=== PATIENT | male | born 1990 | race Caucasian/White ===

== ENCOUNTER 2018-07-26 15:03 | Inpatient (IN) | payer SELFPAY ==
[2018-07-26] MEDS ORDERED: KETOROLAC TROMETHAMINE INJ/PF 30 MG/1 ML SDV IV ONE (16:02)
[2018-07-26] MEDS ORDERED: VANCOMYCIN HCL INJ 1000 MG VIAL IV ONE (16:02)
--- NOTE | 2018-07-26 16:07 | ER Document Report ---
ED General - General Chief Complaint: Leg Swelling Stated Complaint: ANKLE INJURY Time Seen by Provider: 07/26/18 15:42 TRAVEL OUTSIDE OF THE [place] IN LAST 30 DAYS: No - HPI Onset: Other - 1 week Onset/Duration: Gradual, Worse Quality of pain: Burning, Sharp Severity: Severe Associated symptoms: None Exacerbated by: Standing, Movement Relieved by: Denies Similar symptoms previously: No Notes: Patient presents to the emergency room for pain and redness in his right ankle. He noticed the swelling starting about 1 week ago but it became more severe over the past 2-3 days. He reports that the ankle feels warm and achy. Pain is worse with movement and standing. He has tried [id number] pain medications with no relief. He denies fevers, chills, nausea, vomiting, abdominal pain, shortness of breath, chest pain, numbness and weakness. He does have a history of IV drug use but denies injection into his right lower extremity. His last injection was 2 months ago and was methamphetamine. Patient also complaining of right medial clavicular pain which has been constant since a trauma he experienced 3 weeks ago. Patient states a piece of sheet rock fell on his right clavicle. He has had multiple ER visits and x- rays and has been told that it might be broken. He states he was referred to orthopedics but cannot afford to follow-up. He denies change in his clavicle pain over the last few weeks - Related Data Allergies/Adverse Reactions: No Known Allergies Allergy (Unverified 07/26/18 16:02) Past Medical History - Social History Smoking Status: Current Every Day Smoker Chew tobacco use (# tins/day): No Frequency of alcohol use: None Drug Abuse: Methamphetamine Family History: Reviewed & Not Pertinent Patient has suicidal ideation: No Patient has homicidal ideation: No - Medical History Medical History: Negative Renal/ Medical History: Denies: Hx Peritoneal Dialysis Surgical Hx: Other - Left tibial orthopedics surgery Review of Systems - Review of Systems Notes: REVIEW OF SYSTEMS: CONSTITUTIONAL : Denies fever, chills, or sweats. Denies recent illness. EENT: Denies eye, ear, throat, or mouth pain or symptoms. Denies nasal or sinus congestion. CARDIOVASCULAR: Denies chest pain. RESPIRATORY: Denies cough, cold, or chest congestion. Denies shortness of breath, difficulty breathing, or wheezing. GASTROINTESTINAL: Denies abdominal pain. Denies nausea, vomiting, or diarrhea. Denies constipation. GENITOURINARY: Denies difficulty urinating, painful urination and urinary frequency. MUSCULOSKELETAL: Denies neck or back pain . Right ankle pain, right medial clavicle pain SKIN: Redness to right ankle. HEMATOLOGIC : Denies easy bruising or bleeding. LYMPHATIC: Denies swollen, enlarged glands. NEUROLOGICAL: Denies altered mental status. Denies headache. Denies weakness or paralysis. Denies problems with gait or speech. Denies sensory or motor loss. PSYCHIATRIC: Denies anxiety or depression. ALL OTHER SYSTEMS REVIEWED AND NEGATIVE. Physical Exam - Vital signs Vitals: Temp Pulse Resp BP Pulse Ox 98.1 F 117 H 24 H 134/75 H 100 07/26/18 15:14 07/26/18 15:14 07/26/18 15:14 07/26/18 15:14 07/26/18 15:14 - Notes Notes: PHYSICAL EXAMINATION: GENERAL: Well-appearing, well-nourished and in no acute distress. HEAD: Atraumatic, normocephalic. EYES: Pupils equal round and reactive to light, extraocular movements intact, conjunctiva are normal. ENT: nares patent, oropharynx clear without exudates. Moist mucous membranes. NECK: Normal range of motion, supple without lymphadenopathy LUNGS: Breath sounds clear to auscultation bilaterally and equal. No wheezes rales or rhonchi. HEART: Regular rate and rhythm without murmurs ABDOMEN: Soft, nontender, normoactive bowel sounds. No guarding, no rebound. No masses appreciated. EXTREMITIES: Right ankle: Significant edema, erythema, calor and decreased range of motion with diffuse tenderness to palpation. Edema of right foot with erythema. Petechial rash to bilateral lower extremities worse on the right. Right medial clavicle tenderness and mild swelling at the sternoclavicular joint. Normal range of motion of right upper extremity. No chest wall crepitus. NEUROLOGICAL: No focal neurological deficits. Moves all extremities spontaneously and on command. PSYCH: Normal mood, normal affect. SKIN: Warm, Dry, normal turgor, no rashes or lesions noted. Course - Re-evaluation Re-evalutation: 07/26/18 17:18 Vitals reviewed. Patient has tachycardia and tachypnea combined with right ankle cellulitis he is meeting sepsis criteria. Blood cultures were obtained. Patient was ordered vancomycin for his right lower extremity cellulitis and possible septic arthritis. Lab work shows no leukocytosis. He does have elevated ESR and CRP. X-ray of the ankle shows significant soft tissue swelling and effusion. I discussed patient's care with Dr. Monsivais. Because I am concerned for septic arthritis I requested that he aspirated patient's ankle and evaluate him in the emergency room. He did request that the vancomycin be held until after aspiration is completed. Patient received 500 mg vancomycin but I did stop the infusion, it will be restarted after aspiration is obtained. Patient has a normal lactate and is not in severe sepsis or septic shock. His pain was treated with IV medication. 07/26/18 18:31 Patient evaluated by orthopedic surgery Dr. dan in the emergency room. No joint aspirate was able to be obtained. He recommends empiric IV antibiotic treatment and close clinical monitoring. Patient will be admitted to the hospital for further antibiotics and management. Case discussed with admitting physician. Patient in agreement with the plan. 07/26/18 18:32 Laboratory 07/26/18 07/26/18 07/26/18 15:03 15:03 16:30 WBC 7.0 RBC 4.15 L Hgb 12.3 L Hct 36.8 L MCV 89 MCH 29.8 MCHC 33.5 RDW 14.2 H Plt Count 274 Seg Neutrophils % 66.0 Lymphocytes % 19.4 Monocytes % 11.7 Eosinophils % 1.6 Basophils % 1.3 Absolute Neutrophils 4.6 Absolute Lymphocytes 1.4 Absolute Monocytes 0.8 Absolute Eosinophils 0.1 Absolute Basophils 0.1 ESR 38 H Sodium 142.0 Potassium 3.9 Chloride 104 Carbon Dioxide 28 Anion Gap 10 BUN 11 Creatinine 0.70 Est GFR ( Amer) > 60 Est GFR (Non-Af Amer) > 60 Glucose 82 Lactic Acid 1.7 Calcium 9.0 C-Reactive Protein 45.0 H Ankle X-Ray 07/26/18 15:59 IMPRESSION: Ankle joint effusion with diffuse soft tissue swelling. No fracture. - Vital Signs Vital signs: Temp Pulse Resp BP Pulse Ox 98.1 F 117 H 24 H 134/75 H 100 07/26/18 15:14 07/26/18 15:14 07/26/18 15:14 07/26/18 15:14 07/26/18 15:14 - Laboratory Result Diagrams: 07/26/18 15:03 07/26/18 15:03 Laboratory results interpreted by me: 07/26/18 07/26/18 15:03 15:03 RBC 4.15 L Hgb 12.3 L Hct 36.8 L RDW 14.2 H ESR 38 H C-Reactive Protein 45.0 H Discharge - Discharge Clinical Impression: Cellulitis of right leg Condition: Stable Admitting Provider: Hospitalist Unit Admitted: Telemetry
[2018-07-26 16:13] LABS: ABSOLUTE BASOPHILS # (AUTO) 0.1 10^3/uL (0.0-0.2); ABSOLUTE EOSINOPHILS # (AUTO) 0.1 10^3/uL (0.0-0.6); ABSOLUTE LYMPHOCYTES (AUTO) 1.4 10^3/uL (0.5-4.7); ABSOLUTE MONOCYTES (AUTO) 0.8 10^3/uL (0.1-1.4); ABSOLUTE NEUT (AUTO) 4.6 10^3/uL (1.7-8.2); BASOPHILS % (AUTO) 1.3 % (0-2); EOSINOPHILS % (AUTO) 1.6 % (0-6); HEMATOCRIT 36.8 % (37.9-51.0); HEMOGLOBIN 12.3 g/dL (13.5-17.0); LYMPHOCYTES % (AUTO) 19.4 % (13-45); MEAN CORPUSCULAR HEMOGLOBIN 29.8 pg (27.0-33.4); MEAN CORPUSCULAR HGB CONC 33.5 g/dL (32.0-36.0); MEAN CORPUSCULAR VOLUME 89 fl (80-97); MONOCYTES % (AUTO) 11.7 % (3-13); PLATELET COUNT 274 10^3/uL (150-450); RED BLOOD COUNT 4.15 10^6/uL (4.35-5.55); RED CELL DISTRIBUTION WIDTH 14.2 % (11.5-14.0); TOTAL CELLS COUNTED % (AUTO) 100 %
[2018-07-26 16:21] LABS: ANION GAP 10 (5-19); BLOOD UREA NITROGEN 11 mg/dL (7-20); CARBON DIOXIDE 28 mmol/L (22-30); CHLORIDE 104 mmol/L (98-107); GLUCOSE 82 mg/dL (75-110); POTASSIUM 3.9 mmol/L (3.6-5.0)
[2018-07-26] MEDS: NORMAL SALINE 1000 ML 1,000 ML IV PRN ×2 (16:27→17:31)
[2018-07-26 16:53] LABS: ERYTHROCYTE SEDIMENTATION RATE 38 mm/hr (0-15)
--- NOTE | 2018-07-26 16:57 | RADIOLOGY REPORT (SQ) ---
EXAM DESCRIPTION: ANKLE RIGHT COMPLETE COMPLETED DATE/TIME: 07/26/2018 4:30 pm REASON FOR STUDY: edema swelling for 3 weeks, no known injury COMPARISON: None. NUMBER OF VIEWS: Three views. TECHNIQUE: AP, lateral, and oblique radiographic images acquired of the right ankle. LIMITATIONS: None. FINDINGS: MINERALIZATION: Normal. BONES: No acute fracture or dislocation. No worrisome bone lesions. JOINTS: No disruption of the ankle mortise. Tibiotalar joint effusion present. SOFT TISSUES: Diffuse soft tissue swelling. No soft tissue gas. No radiopaque foreign body. OTHER: No other significant finding. IMPRESSION: Ankle joint effusion with diffuse soft tissue swelling. No fracture. TECHNICAL DOCUMENTATION: JOB ID: [id number] [employer]- All Rights Reserved Reading location - IP/workstation name: [email or web address]
--- NOTE | 2018-07-26 18:42 | PDOC CONSULTATION ---
History of Present Illness Patient complains of: Right ankle pain History of Present Illness: DARYL ESTEVEZ is a 27 year old male presents emergency room with complaints of right ankle discomfort. He states it has been ongoing for a few weeks but has worsened over the past 24-48 hours with difficulty upon ambulation and notable increased swelling. Patient denies fever chills or sweats. Pain 5/5. Patient does have history of IV drug abuse but states his last IV drugs were 2 months ago and that was in the upper extremity not in the right lower extremity where his complaint is today. Social History Smoking Status: Current Every Day Smoker Hx Recreational Drug Use: Yes Family History Parental Family History Reviewed: No Children Family History Reviewed: No Sibling(s) Family History Reviewed.: No Medication/Allergy Allergies/Adverse Reactions: No Known Allergies Allergy (Unverified 07/26/18 16:02) Review of Systems All systems: as per PMH Constitutional: ABSENT: chills, fever(s), headache(s), weight gain, weight loss Eyes: ABSENT: visual disturbances Ears: ABSENT: hearing changes Cardiovascular: ABSENT: chest pain, dyspnea on exertion, edema, orthropnea, palpitations Respiratory: ABSENT: cough, hemoptysis Gastrointestinal: ABSENT: abdominal pain, constipation, diarrhea, hematemesis, hematochezia, nausea, vomiting Genitourinary: ABSENT: dysuria, hematuria Integumentary: ABSENT: rash, wounds Neurological: ABSENT: abnormal gait, abnormal speech, confusion, dizziness, focal weakness, syncope Psychiatric: ABSENT: anxiety, depression, homidical ideation, suicidal ideation Endocrine: ABSENT: cold intolerance, heat intolerance, menstrual abnormalities, polydipsia, polyuria Hematologic/Lymphatic: ABSENT: easy bleeding, easy bruising, lymphadenopathy Physical Exam Vital Signs: Temp Pulse Resp BP Pulse Ox 98.1 F 117 H 24 H 134/75 H 100 07/26/18 15:14 07/26/18 15:14 07/26/18 15:14 07/26/18 15:14 07/26/18 15:14 Intake & Output 07/25/18 07/26/18 07/27/18 06:59 06:59 06:59 Intake Total 1999 Balance 1999 Weight 72.575 kg General appearance: PRESENT: no acute distress, cooperative, well-developed, well-nourished Head exam: PRESENT: atraumatic, normocephalic Eye exam: PRESENT: conjunctival injection, EOMI, PERRLA. ABSENT: scleral icterus Ear exam: PRESENT: normal external ear exam Mouth exam: PRESENT: moist, tongue midline Teeth exam: PRESENT: poor dentation Neck exam: PRESENT: full ROM. ABSENT: carotid bruit, JVD, lymphadenopathy, thyromegaly Respiratory exam: PRESENT: unlabored Cardiovascular exam: PRESENT: RRR. ABSENT: diastolic murmur, rubs, systolic murmur Pulses: PRESENT: normal dorsalis pedis pul, +2 pedal pulses bilateral Vascular exam: PRESENT: normal capillary refill GI/Abdominal exam: PRESENT: soft. ABSENT: distended, guarding, mass, organolmegaly, rebound, tenderness Rectal exam: PRESENT: deferred Musculoskeletal exam: PRESENT: other - Right lower extremity: Erythema/macular rash around the right lower extremity. Notable swelling throughout the right ankle. Exquisite tenderness with palpation. Patient has pain with attempted terminal dorsiflexion and plantar flexion. No sensory deficits. Cap refill less than 2 seconds. No calf tenderness. Neurological exam: PRESENT: alert, awake, oriented to person, oriented to place , oriented to time, oriented to situation, CN II-XII grossly intact. ABSENT: motor sensory deficit Psychiatric exam: PRESENT: appropriate affect, normal mood. ABSENT: homicidal ideation, suicidal ideation Skin exam: PRESENT: dry, intact, warm. ABSENT: cyanosis, rash Results Laboratory Results: 07/26/18 15:03 07/26/18 15:03 07/26/18 07/26/18 07/26/18 15:03 15:03 16:30 WBC 7.0 RBC 4.15 L Hgb 12.3 L Hct 36.8 L MCV 89 MCH 29.8 MCHC 33.5 RDW 14.2 H Plt Count 274 Seg Neutrophils % 66.0 Lymphocytes % 19.4 Monocytes % 11.7 Eosinophils % 1.6 Basophils % 1.3 Absolute Neutrophils 4.6 Absolute Lymphocytes 1.4 Absolute Monocytes 0.8 Absolute Eosinophils 0.1 Absolute Basophils 0.1 Sodium 142.0 Potassium 3.9 Chloride 104 Carbon Dioxide 28 Anion Gap 10 BUN 11 Creatinine 0.70 Est GFR ( Amer) > 60 Est GFR (Non-Af Amer) > 60 Glucose 82 Lactic Acid 1.7 Calcium 9.0 C-Reactive Protein 45.0 H Impressions: Ankle X-Ray 07/26/18 15:59 IMPRESSION: Ankle joint effusion with diffuse soft tissue swelling. No fracture. Status: Image reviewed by me - I have reviewed patient's radiographs demonstrate soft tissue swelling with mild effusion. No evidence of acute trauma or osseous lesion. Assessment & Plan - Diagnosis (1) Cellulitis of right lower extremity Is this a current diagnosis for this admission?: Yes Plan: Patient has findings of swelling and erythema the right lower extremity within the differential diagnosis includes possible gout versus septic arthritis. Given patient's history of IV drug abuse septic arthritis and cellulitis certainly are somewhat higher on the list of the differential. However patient has no evidence of increased white blood cell count or left shift at this point we discussed treatment options and I recommended attempted aspiration. Patient gave verbal consent for right ankle aspiration, see procedure note below. Unfortunately I obtained a dry tap with attempted aspiration which is possibly indicative of more of a cellulitis than a septic arthritis issue furthermore given patient's pain with light touch to the extremity this also somewhat guides to more of a cellulitic type picture. At this point I have recommended admission to the hospitalist service with IV antibiotics and continue to follow patient's blood cultures. Will follow the patient clinically if he fails to see improvement will consider MRI. Procedure note: Pre/post-procedure diagnosis: Right ankle effusion Procedure performed: Right ankle aspiration Procedure detail: Risks and benefits of the procedure were explained to the patient and verbal consent was obtained. The right ankle was prepped with Betadine and alcohol. The anterior tibialis was palpated and at the soft spot between the anterior tibialis and the medial malleolus 18-gauge needle was inserted. Attempted aspiration demonstrated no evidence of fluid this was then redirected still obtaining new fluid. Insertion site was covered with a Band- Aid. Patient tolerated procedure well.
[2018-07-26] MEDS ORDERED: HYDRALAZINE HCL INJ/PF 20 MG/1 ML SDV IV PRN (19:30)
[2018-07-26] MEDS ORDERED: IPRATROPIUM/ALBUTEROL 0.5-2.5 MG/3 ML AMPUL NEB PRN (19:30)
[2018-07-26] MEDS ORDERED: MAG HYDROX/AL HYDROX/SIMETH SUSP 30 ML UDCUP PO PRN (19:30)
[2018-07-26] MEDS ORDERED: MAGNESIUM HYDROXIDE SUSP 30 ML UDCUP PO PRN (19:30)
[2018-07-26 19:49] LABS: APPEARANCE,URINE CLEAR; BILIRUBIN,URINE NEGATIVE (NEGATIVE); COLOR,URINE YELLOW; GLUCOSE, URINE NEGATIVE (NEGATIVE); KETONES,URINE NEGATIVE (NEGATIVE); LEUKOCYTE ESTERASE,URINE NEGATIVE (NEGATIVE); NITRITE,URINE NEGATIVE (NEGATIVE); PROTEIN,URINE NEGATIVE (NEGATIVE); URINE SPECIFIC GRAVITY 1.011; UROBILINOGEN,URINE NEGATIVE mg/dL (<2.0)
[2018-07-26] MEDS ORDERED: NORMAL SALINE 1000 ML 1,000 ML IV SCH (20:00)
[2018-07-26 20:22] LABS: URINE BARBITURATES SCREEN NEGATIVE; URINE BENZODIAZEPINES SCREEN NEGATIVE; URINE COCAINE SCREEN NEGATIVE; URINE METHADONE SCREEN NEGATIVE; URINE PHENCYCLIDINE SCREEN NEGATIVE
[2018-07-26 20:27] LABS: URINE MARIJUANA (THC) SCREEN NEGATIVE
[2018-07-26] MEDS: KETOROLAC TROMETHAMINE INJ/PF 30 MG/1 ML SDV IV PRN (22:15)
[2018-07-26] MEDS: HEPARIN SOD (PORCINE) 5,000 UNIT/ML 1 ML SYRINGE SUBCUT SCH (22:16)
[2018-07-27] MEDS: KETOROLAC TROMETHAMINE INJ/PF 30 MG/1 ML SDV IV PRN (05:50)
[2018-07-27] MEDS: HEPARIN SOD (PORCINE) 5,000 UNIT/ML 1 ML SYRINGE SUBCUT SCH ×3 (05:51→21:25)
--- NOTE | 2018-07-27 06:01 | PDOC H&P ---
History of Present Illness Admission Date/PCP: 07/26/18 19:36 Patient complains of: Right ankle pain and swelling History of Present Illness: DARYL ESTEVEZ is a 27 year old male with a past medical history of IV drug abuse with methamphetamine abuse and tobacco dependence. Presents with right ankle pain and swelling which began 2 weeks ago but significantly worsened over the last 48 hours. Patient admits IV drug use at this site but claims abstaining from IV drug abuse for 2 months. In the emergency room he is seen by orthopedic surgery receives arthrocentesis and empiric antibiotics then referred to the hospitalist for admission. Past Medical History Medical History: None Psychiatric Medical History: Reports: General Anxiety Disorder, Substance Abuse , Tobacco Dependency Denies: Depression Social History Information Source: Patient, [facility] Records Smoking Status: Current Every Day Smoker Cigarettes Packs Per Day: 1 Number of Years Smokin Frequency of Alcohol Use: Rare Hx Recreational Drug Use: Yes Drugs: Methadone Hx Prescription Drug Abuse: Yes - Advance Directive Resuscitation Status: Full Code Family History Family History: COPD, Hypertension Parental Family History Reviewed: Yes Children Family History Reviewed: Yes Sibling(s) Family History Reviewed.: Yes Medication/Allergy Allergies/Adverse Reactions: No Known Allergies Allergy (Unverified 07/26/18 16:02) Review of Systems Constitutional: ABSENT: chills, fever(s), headache(s), weight gain, weight loss Eyes: ABSENT: visual disturbances Ears: ABSENT: hearing changes Cardiovascular: ABSENT: chest pain, dyspnea on exertion, edema, orthropnea, palpitations Respiratory: ABSENT: cough, hemoptysis Gastrointestinal: ABSENT: abdominal pain, constipation, diarrhea, hematemesis, hematochezia, nausea, vomiting Genitourinary: ABSENT: dysuria, hematuria Musculoskeletal: ABSENT: joint swelling Integumentary: ABSENT: rash, wounds Neurological: ABSENT: abnormal gait, abnormal speech, confusion, dizziness, focal weakness, syncope Psychiatric: ABSENT: anxiety, depression, homidical ideation, suicidal ideation Endocrine: ABSENT: cold intolerance, heat intolerance, polydipsia, polyuria Hematologic/Lymphatic: ABSENT: easy bleeding, easy bruising Physical Exam Vital Signs: Temp Pulse Resp BP Pulse Ox 97.7 F 99 20 131/69 H 99 07/26/18 21:58 07/27/18 02:00 07/27/18 00:00 07/27/18 00:00 07/27/18 00:00 Intake & Output 07/25/18 07/26/18 07/27/18 11:59 11:59 11:59 Weight 80.7 kg General appearance: PRESENT: no acute distress, cooperative, disheveled, thin Head exam: PRESENT: atraumatic, normocephalic Eye exam: PRESENT: conjunctiva pink, EOMI, PERRLA. ABSENT: scleral icterus Ear exam: PRESENT: normal external ear exam Mouth exam: PRESENT: moist, tongue midline Neck exam: ABSENT: carotid bruit, JVD, lymphadenopathy, thyromegaly Respiratory exam: PRESENT: clear to auscultation maik. ABSENT: rales, rhonchi, wheezes Cardiovascular exam: PRESENT: RRR. ABSENT: diastolic murmur, rubs, systolic murmur Pulses: PRESENT: normal dorsalis pedis pul Vascular exam: PRESENT: normal capillary refill GI/Abdominal exam: PRESENT: normal bowel sounds, soft. ABSENT: distended, guarding, mass, organolmegaly, rebound, tenderness Rectal exam: PRESENT: deferred Extremities exam: PRESENT: full ROM, joint swelling - Right ankle, +1 edema. ABSENT: calf tenderness, clubbing, pedal edema Neurological exam: PRESENT: alert, awake, oriented to person, oriented to place , oriented to time, oriented to situation, CN II-XII grossly intact. ABSENT: motor sensory deficit Psychiatric exam: PRESENT: appropriate affect, normal mood. ABSENT: homicidal ideation, suicidal ideation Skin exam: PRESENT: dry, intact, warm. ABSENT: cyanosis, rash Results Impressions: Ankle X-Ray 07/26/18 15:59 IMPRESSION: Ankle joint effusion with diffuse soft tissue swelling. No fracture. Assessment & Plan - Diagnosis (1) Cellulitis of right lower extremity Is this a current diagnosis for this admission?: Yes Plan: Vancomycin ordered, follow-up orthopedic consult, CBC and culture (2) IV drug abuse Is this a current diagnosis for this admission?: Yes Plan: No murmur, supportive measures (3) Tobacco dependence Is this a current diagnosis for this admission?: Yes Plan: Tobacco Dependence patient received tobacco cessation counseling and offered nicotine replacement options - Time Time Spent: 50 to 70 Minutes
[2018-07-27 06:17] LABS: ABSOLUTE BASOPHILS # (AUTO) 0.1 10^3/uL (0.0-0.2); ABSOLUTE EOSINOPHILS # (AUTO) 0.2 10^3/uL (0.0-0.6); ABSOLUTE LYMPHOCYTES (AUTO) 1.8 10^3/uL (0.5-4.7); ABSOLUTE MONOCYTES (AUTO) 0.8 10^3/uL (0.1-1.4); ABSOLUTE NEUT (AUTO) 2.4 10^3/uL (1.7-8.2); BASOPHILS % (AUTO) 1.9 % (0-2); HEMATOCRIT 36.1 % (37.9-51.0); HEMOGLOBIN 12.2 g/dL (13.5-17.0); LYMPHOCYTES % (AUTO) 33.5 % (13-45); MEAN CORPUSCULAR HEMOGLOBIN 30.1 pg (27.0-33.4); MEAN CORPUSCULAR HGB CONC 33.8 g/dL (32.0-36.0); MEAN CORPUSCULAR VOLUME 89 fl (80-97); MONOCYTES % (AUTO) 15.4 % (3-13); PLATELET COUNT 251 10^3/uL (150-450); RED BLOOD COUNT 4.05 10^6/uL (4.35-5.55); RED CELL DISTRIBUTION WIDTH 14.4 % (11.5-14.0); SEGMENTED NEUTROPHILS % (AUTO) 45.2 % (42-78); TOTAL CELLS COUNTED % (AUTO) 100 %; WHITE BLOOD COUNT 5.3 10^3/uL (4.0-10.5)
[2018-07-27] MEDS: DOCUSATE SODIUM 100 MG CAPSULE PO SCH ×2 (09:11→17:21)
--- NOTE | 2018-07-27 11:26 | Progress Note ---
Provider Note Provider Note: Patient is IV drug abuser was admitted with right ankle swelling and severe pain ; patient is being treated with vancomycin IV. Patient was seen by orthopedist who attempted aspiration which was dry tap. Patient will be continued on IV antibiotic and he fails to improve we will consider MRI.
--- NOTE | 2018-07-27 13:55 | PDOC PROGRESS REPORT ---
Subjective Progress Note for:: 07/27/18 Subjective:: Patient sleeping when entering the room. States the pain in his right ankle has not notably improved and still has pain with motion and especially with light touch to the skin. Denies fever or chills. Reason For Visit: SEPTIC ARTHRITIS, IVD ABUSE TACHYCARDIA Physical Exam Vital Signs: Temp Pulse Resp BP Pulse Ox 97.4 F 99 12 100/53 L 99 07/27/18 07:27 07/27/18 08:36 07/27/18 08:36 07/27/18 07:27 07/27/18 08:36 Intake & Output 07/26/18 07/27/18 07/28/18 06:59 06:59 06:59 Intake Total 400 355 Output Total 550 600 Balance -150 -245 Weight 80.7 kg General appearance: PRESENT: no acute distress, cooperative, well-developed, well-nourished Head exam: PRESENT: atraumatic, normocephalic Eye exam: PRESENT: conjunctiva pink, EOMI, PERRLA. ABSENT: scleral icterus Ear exam: PRESENT: normal external ear exam Mouth exam: PRESENT: moist, tongue midline Neck exam: PRESENT: full ROM. ABSENT: carotid bruit, JVD, lymphadenopathy, thyromegaly Cardiovascular exam: PRESENT: RRR. ABSENT: diastolic murmur, rubs, systolic murmur Pulses: PRESENT: normal dorsalis pedis pul, +2 pedal pulses bilateral Vascular exam: PRESENT: normal capillary refill GI/Abdominal exam: PRESENT: normal bowel sounds, soft. ABSENT: distended, guarding, mass, organolmegaly, rebound, tenderness Rectal exam: PRESENT: deferred Musculoskeletal exam: PRESENT: other - Right lower extremity: Swelling and erythema relatively unchanged. Continues to have tenderness palpation and pain with light touch. Intact plantar flexion/dorsiflexion but pain with terminal flexion/extension. No sensory deficits. Dorsalis pedis pulse 2+ Neurological exam: PRESENT: alert, awake, oriented to person, oriented to place , oriented to time, oriented to situation, CN II-XII grossly intact. ABSENT: motor sensory deficit Psychiatric exam: PRESENT: appropriate affect, normal mood. ABSENT: homicidal ideation, suicidal ideation Skin exam: PRESENT: dry, intact, warm. ABSENT: cyanosis, rash Results Laboratory Results: 07/27/18 04:15 07/27/18 04:15 WBC 5.3 RBC 4.05 L Hgb 12.2 L Hct 36.1 L MCV 89 MCH 30.1 MCHC 33.8 RDW 14.4 H Plt Count 251 Seg Neutrophils % 45.2 Lymphocytes % 33.5 Monocytes % 15.4 H Eosinophils % 4.0 Basophils % 1.9 Absolute Neutrophils 2.4 Absolute Lymphocytes 1.8 Absolute Monocytes 0.8 Absolute Eosinophils 0.2 Absolute Basophils 0.1 Impressions: Ankle X-Ray 07/26/18 15:59 IMPRESSION: Ankle joint effusion with diffuse soft tissue swelling. No fracture. Assessment & Plan - Diagnosis (1) Cellulitis of right lower extremity Is this a current diagnosis for this admission?: Yes Plan: Patient has findings of swelling and erythema the right lower extremity within the differential diagnosis includes possible gout versus septic arthritis. Given patient's history of IV drug abuse septic arthritis and cellulitis certainly are somewhat higher on the list of the differential. However patient still has no evidence of increased white blood cell count or left shift. At this point patient has failed to see improvement thus I will start him on colchicine for possible gout patient's examination findings are more consistent with gout given his pain with even light touch along the region but will also obtain MRI to evaluate ankle effusion. If patient fails to see improvement by a.m. we will discuss possible operative irrigation and debridement.
[2018-07-27] MEDS ORDERED: COLCHICINE 0.6 MG TABLET PO ONE (15:00)
[2018-07-27] MEDS: NORMAL SALINE 1000 ML 1,000 ML IV PRN (20:02)
[2018-07-27] MEDS: ACETAMINOPHEN 325 MG TABLET PO PRN (20:02)
[2018-07-28 05:26] LABS: HEMATOCRIT 33.9 % (37.9-51.0); HEMOGLOBIN 11.4 g/dL (13.5-17.0); MEAN CORPUSCULAR HGB CONC 33.7 g/dL (32.0-36.0); MEAN CORPUSCULAR VOLUME 89 fl (80-97); PLATELET COUNT 224 10^3/uL (150-450); RED CELL DISTRIBUTION WIDTH 14.2 % (11.5-14.0); WHITE BLOOD COUNT 5.2 10^3/uL (4.0-10.5)
[2018-07-28 05:45] LABS: ANION GAP 11 (5-19); BLOOD UREA NITROGEN 11 mg/dL (7-20); CALCIUM 8.9 mg/dL (8.4-10.2); CARBON DIOXIDE 27 mmol/L (22-30); CHLORIDE 104 mmol/L (98-107); GLUCOSE 90 mg/dL (75-110); SODIUM 141.9 mmol/L (137-145)
[2018-07-28 06:02] LABS: ABSOLUTE LYMPHOCYTES# (MANUAL) 1.5 10^3/uL (0.5-4.7); ABSOLUTE MONOCYTES # (MANUAL) 0.5 10^3/uL (0.1-1.4); ABSOLUTE NEUTROPHILS# (MANUAL) 2.8 10^3/uL (1.7-8.2); BASOPHILS % (MANUAL) 5 % (0-2); EOSINOPHILS % (MANUAL) 4 % (0-6); LYMPHOCYTES % (MANUAL) 28 % (13-45); MONOCYTES % (MANUAL) 9 % (3-13); SEGMENTED NEUTROPHILS % (MAN) 54 % (42-78); TOTAL CELLS COUNTED 100
[2018-07-28 06:06] LABS: ANISOCYTOSIS SLIGHT; POIKILOCYTOSIS SLIGHT; TOXIC GRANULATION SLIGHT
[2018-07-28 06:07] LABS: OVALOCYTES SLIGHT; PLATELET COMMENT ADEQUATE
[2018-07-28] MEDS: HEPARIN SOD (PORCINE) 5,000 UNIT/ML 1 ML SYRINGE SUBCUT SCH ×3 (06:13→23:18)
--- NOTE | 2018-07-28 07:57 | PDOC PROGRESS REPORT ---
Subjective Subjective:: Patient sleeping when entering the room. States the pain in his right ankle has improved and was able to ambulate yesterday. Denies fever or chills. Reason For Visit: SEPTIC ARTHRITIS, IVD ABUSE TACHYCARDIA Physical Exam Vital Signs: Temp Pulse Resp BP Pulse Ox 97.9 F 83 12 109/63 98 07/28/18 04:00 07/28/18 04:00 07/28/18 04:00 07/28/18 04:00 07/28/18 04:00 Intake & Output 07/27/18 07/28/18 07/29/18 06:59 06:59 06:59 Intake Total 400 3967 Output Total 550 2300 Balance -150 1667 Weight 80.7 kg 87.5 kg Musculoskeletal exam: PRESENT: other - Right ankle: Swelling and erythema along the lateral aspect of the ankle exquisite pain with light touch. Patient has notable improved range of motion. Intact plantar flexion/dorsiflexion without discomfort. Dorsalis pedis pulse 2+. Cap refill less than 2 seconds. Results Laboratory Results: 07/28/18 04:15 07/28/18 04:15 07/27/18 07/28/18 07/28/18 04:15 04:15 04:15 WBC 5.2 RBC 3.80 L Hgb 11.4 L Hct 33.9 L MCV 89 MCH 30.0 MCHC 33.7 RDW 14.2 H Plt Count 224 Seg Neutrophils % Not Reportable Lymphocytes % Not Reportable Monocytes % Not Reportable Eosinophils % Not Reportable Basophils % Not Reportable Absolute Neutrophils Not Reportable Absolute Lymphocytes Not Reportable Absolute Monocytes Not Reportable Absolute Eosinophils Not Reportable Absolute Basophils Not Reportable Sodium 141.9 Potassium 4.0 Chloride 104 Carbon Dioxide 27 Anion Gap 11 BUN 11 Creatinine 0.59 Est GFR ( Amer) > 60 Est GFR (Non-Af Amer) > 60 Glucose 90 Uric Acid 3.8 Calcium 8.9 Impressions: Ankle X-Ray 07/26/18 15:59 IMPRESSION: Ankle joint effusion with diffuse soft tissue swelling. No fracture. Assessment & Plan - Diagnosis (1) Cellulitis of right lower extremity Is this a current diagnosis for this admission?: Yes Plan: Patient has findings of swelling and erythema the right lower extremity within the differential diagnosis includes possible gout versus septic arthritis. Given patient's history of IV drug abuse septic arthritis and cellulitis certainly are somewhat higher on the list of the differential. However patient still has no evidence of increased white blood cell count or left shift. Patient has seen improvement after initiation of colchicine but continues to have residual swelling and erythema throughout the lower extremity. At this point he does require MRI to further evaluate for underlying abscess or joint effusion. I have discussed risks and benefits of operative treatment if they are required including recurrent infection, postoperative pain, postoperative stiffness, neurovascular injury he has verbalized understanding. We will place him on the operating room schedule and once MRI is complete make final decision.
--- NOTE | 2018-07-28 09:31 | RADIOLOGY REPORT (SQ) ---
EXAM DESCRIPTION: MRI RT LOWER JOINT COMBO COMPLETED DATE/TIME: 07/28/2018 9:16 am REASON FOR STUDY: Right Ankle Pain COMPARISON: None. TECHNIQUE: RIGHT ankle images acquired and stored on PACS. Multiplanar images include fat sensitive sequences as T1, fluid sensitive sequences as FST2/STIR, cartilage sensitive sequences as FSPD, and g radient echo sequences. Patient was injected with 15 mL of IV donor around and postcontrast axial coronal and sagittal T1 fat sat images were obtained. Patient's creatinine 0.7, estimated GFR greater than 60 LIMITATIONS: None. FINDINGS: BONE MARROW: No alteration of signal to suggest marrow replacement or edema. No occult fra cture. No large osteophytes. EFFUSIONS: No subtalar or tibiotalar effusions. No loose bodies. OSSEOUS ARTICULATIONS: Normal tibiotalar, subtalar, talonavicular and calcaneocuboid joints. TALAR DOME AND TIBIAL PLAFOND: Normal cartilage. No osteochondral defect. ACHILLES TENDON: Intact without partial or full-thickness tear. No adjacent bursal fluid or edema. TIBIALIS ANTERIOR TENDON: Intact without edema at the 1st MT attachment. TIBIALIS POSTERIOR TENDON: Normal morphology and no edema at the navicular attachment. Accessory peter icular bone is present with a small amount of fluid along the tendon sheath, best shown on sagittal S TIR image 17. FLEXOR HALLUCIS LONGUS AND FLEXOR DIGITORUM TENDONS: Normal morphology and no tendon sheath fluid. No edema of the os trigonum. PERONEUS LONGUS AND BREVIS TENDON: Normal morphology and no tendon sheath fluid. No subluxation. ATFL, CFL, PTFL: Intact. No thickening or signal alteration. No tiffanie-ligamentous fluid. DELTOID LIGAMENT: Visualized components intact. TARSAL TUNNEL: No masses. No muscle atrophy. SINUS TARSI: No fluid. No reactive marrow edema or erosions. PLANTAR FASCIA: No signal alteration or tear. ADJACENT SOFT TISSUES: Extensive subcutaneous edema is present with diffuse skin thickening from cell ulitis. No discrete abscess is identified. OTHER: No other significant finding. IMPRESSION: Right ankle superficial soft tissue edema and cellulitis without rim enhancing abscess i dentified. No abnormal marrow signal worrisome for osteomyelitis. No ankle joint effusion. TECHNICAL DOCUMENTATION: JOB ID: [id number] [employer]- All Rights Reserved Reading location - IP/workstation name: [email or web address]
[2018-07-28] MEDS: CEFTRIAXONE SODIUM 2,000 MG in NORMAL SALINE 100 ML IV SCH (09:52)
[2018-07-28] MEDS ORDERED: CEFTRIAXONE 2 GM/D5W RTU 2 GM/50 ML RTUPB IV SCH (10:00)
[2018-07-28] MEDS ORDERED: COLCHICINE 0.6 MG TABLET PO SCH (10:00)
[2018-07-28] MEDS: DOCUSATE SODIUM 100 MG CAPSULE PO SCH ×2 (10:07→17:25)
[2018-07-28] MEDS: KETOROLAC TROMETHAMINE INJ/PF 30 MG/1 ML SDV IV PRN (10:19)
[2018-07-28] MEDS: ACETAMINOPHEN 325 MG TABLET PO PRN (11:50)
--- NOTE | 2018-07-28 13:09 | Progress Note ---
Provider Note Provider Note: I have reviewed patient's MRI which demonstrates no evidence of underlying abscess or effusion within the ankle joint to indicate septic arthritis. Thus I feel majority of patient's symptoms are secondary to cellulitis at this point would recommend continuing IV antibiotics. Patient is showing improvement and has notable improved range of motion of his ankle compared to previous examinations. Will follow-up as needed.
--- NOTE | 2018-07-28 13:36 | PDOC PROGRESS REPORT ---
Subjective Progress Note for:: 07/28/18 Subjective:: The patient continues to complain of severe pain in the right ankle, although he and his family agree that it is looking somewhat better. Reason For Visit: SEPTIC ARTHRITIS, IVD ABUSE TACHYCARDIA Physical Exam Vital Signs: Temp Pulse Resp BP Pulse Ox 98.3 F 93 14 127/75 H 95 07/28/18 08:16 07/28/18 11:14 07/28/18 11:14 07/28/18 08:16 07/28/18 11:14 Intake & Output 07/27/18 07/28/18 07/29/18 06:59 06:59 06:59 Intake Total 400 4687 100 Output Total 550 2300 Balance -150 2387 100 Weight 80.7 kg 87.5 kg General appearance: PRESENT: no acute distress, cooperative, well-developed, well-nourished Respiratory exam: PRESENT: other - No increased work of breathing. No wheezes, rales, or rhonchi. Cardiovascular exam: PRESENT: RRR. ABSENT: gallop, rubs, systolic murmur GI/Abdominal exam: PRESENT: soft. ABSENT: distended, hernia, mass, Pineda's sign, tenderness Extremities exam: PRESENT: other - Right foot/ankle/lower extremity is erythematous, warm, and tender to touch. The patient and family state that it is looking a little better today. Musculoskeletal exam: PRESENT: tenderness - Right ankle. Neurological exam: PRESENT: alert, awake, oriented to person, oriented to place , oriented to time, oriented to situation, CN II-XII grossly intact. ABSENT: motor sensory deficit Skin exam: PRESENT: dry, intact, warm Results Laboratory Results: 07/28/18 04:15 07/28/18 04:15 07/27/18 07/28/18 07/28/18 04:15 04:15 04:15 WBC 5.2 RBC 3.80 L Hgb 11.4 L Hct 33.9 L MCV 89 MCH 30.0 MCHC 33.7 RDW 14.2 H Plt Count 224 Seg Neutrophils % Not Reportable Lymphocytes % Not Reportable Monocytes % Not Reportable Eosinophils % Not Reportable Basophils % Not Reportable Absolute Neutrophils Not Reportable Absolute Lymphocytes Not Reportable Absolute Monocytes Not Reportable Absolute Eosinophils Not Reportable Absolute Basophils Not Reportable Sodium 141.9 Potassium 4.0 Chloride 104 Carbon Dioxide 27 Anion Gap 11 BUN 11 Creatinine 0.59 Est GFR ( Amer) > 60 Est GFR (Non-Af Amer) > 60 Glucose 90 Uric Acid 3.8 Calcium 8.9 Impressions: Ankle X-Ray 07/26/18 15:59 IMPRESSION: Ankle joint effusion with diffuse soft tissue swelling. No fracture. Lower Extremity MRI 07/28/18 00:00 IMPRESSION: Right ankle superficial soft tissue edema and cellulitis without rim enhancing abscess identified. No abnormal marrow signal worrisome for osteomyelitis. No ankle joint effusion. Assessment & Plan - Diagnosis (1) Cellulitis of right lower extremity Is this a current diagnosis for this admission?: Yes Plan: I have discussed the patient's MRI with Dr. Monsivais. There is no sign of a septic joint. It appears to be cellulitis. I will continue IV antibiotics and stop colchicine. (2) IV drug abuse Is this a current diagnosis for this admission?: Yes Plan: Blood cultures remain negative. Consider echocardiogram if they grow anything. (3) Tobacco dependence Is this a current diagnosis for this admission?: Yes Plan: Nicotine patch. - Time Time Spent with patient: 25-34 minutes Medications reviewed and adjusted accordingly: Yes - Inpatient Certification Based on my medical assessment, after consideration of the patient's comorbidities, presenting symptoms, or acuity I expect that the services needed warrant INPATIENT care.: Yes I certify that my determination is in accordance with my understanding of Medicare's requirements for reasonable and necessary INPATIENT services [42 CFR 412.3e].: Yes Medical Necessity: Need for IV Antibiotics, Risk of Complication if Not Cared For in Hospital
[2018-07-28] MEDS: NORMAL SALINE 1000 ML 1,000 ML IV PRN (18:10)
[2018-07-29] MEDS: HEPARIN SOD (PORCINE) 5,000 UNIT/ML 1 ML SYRINGE SUBCUT SCH ×3 (05:40→21:10)
[2018-07-29 06:03] LABS: ABSOLUTE BASOPHILS # (AUTO) 0.1 10^3/uL (0.0-0.2); ABSOLUTE EOSINOPHILS # (AUTO) 0.2 10^3/uL (0.0-0.6); ABSOLUTE LYMPHOCYTES (AUTO) 1.1 10^3/uL (0.5-4.7); ABSOLUTE MONOCYTES (AUTO) 0.6 10^3/uL (0.1-1.4); ABSOLUTE NEUT (AUTO) 2.8 10^3/uL (1.7-8.2); BASOPHILS % (AUTO) 2.1 % (0-2); HEMATOCRIT 38.1 % (37.9-51.0); HEMOGLOBIN 12.7 g/dL (13.5-17.0); LYMPHOCYTES % (AUTO) 23.3 % (13-45); MEAN CORPUSCULAR HEMOGLOBIN 29.8 pg (27.0-33.4); MEAN CORPUSCULAR HGB CONC 33.4 g/dL (32.0-36.0); MEAN CORPUSCULAR VOLUME 89 fl (80-97); MONOCYTES % (AUTO) 11.6 % (3-13); PLATELET COUNT 276 10^3/uL (150-450); RED BLOOD COUNT 4.27 10^6/uL (4.35-5.55); TOTAL CELLS COUNTED % (AUTO) 100 %; WHITE BLOOD COUNT 4.7 10^3/uL (4.0-10.5)
[2018-07-29 06:28] LABS: ALANINE AMINOTRANSFERASE 65 U/L (21-72); ALBUMIN 3.5 g/dL (3.5-5.0); ALKALINE PHOSPHATASE 102 U/L (38-126); ANION GAP 9 (5-19); ASPARTATE AMINO TRANSFERASE 70 U/L (17-59); BILIRUBIN,DIRECT 0.3 mg/dL (0.0-0.4); BILIRUBIN,TOTAL 0.3 mg/dL (0.2-1.3); BLOOD UREA NITROGEN 10 mg/dL (7-20); CALCIUM 9.3 mg/dL (8.4-10.2); CARBON DIOXIDE 30 mmol/L (22-30); CHLORIDE 103 mmol/L (98-107); GLUCOSE 93 mg/dL (75-110); POTASSIUM 4.3 mmol/L (3.6-5.0); SODIUM 141.5 mmol/L (137-145); TOTAL PROTEIN 7.1 g/dL (6.3-8.2)
[2018-07-29] MEDS: CEFTRIAXONE SODIUM 2,000 MG in NORMAL SALINE 100 ML IV SCH (09:11)
[2018-07-29] MEDS: DOCUSATE SODIUM 100 MG CAPSULE PO SCH ×2 (09:11→17:00)
[2018-07-29] MEDS: KETOROLAC TROMETHAMINE INJ/PF 30 MG/1 ML SDV IV PRN (09:25)
[2018-07-29] MEDS: ACETAMINOPHEN 325 MG TABLET PO PRN (09:26)
--- NOTE | 2018-07-29 14:01 | RADIOLOGY REPORT (SQ) ---
EXAM DESCRIPTION: CLAVICLE RIGHT COMPLETED DATE/TIME: 07/29/2018 1:29 pm REASON FOR STUDY: right clavicle swollen COMPARISON: None. NUMBER OF VIEWS: Two views. TECHNIQUE: Frontal and angled images were acquired of the right clavicle. LIMITATIONS: None. FINDINGS: MINERALIZATION: Normal. BONES: No acute fracture or dislocation. No worrisome bone lesions. SOFT TISSUES: No obvious swelling or foreign body. OTHER: No other significant finding. IMPRESSION: NEGATIVE STUDY OF THE RIGHT CLAVICLE. NO RADIOGRAPHIC EVIDENCE OF ACUTE INJURY. TECHNICAL DOCUMENTATION: JOB ID: [id number] [employer]- All Rights Reserved Reading location - IP/workstation name: [email or web address]
--- NOTE | 2018-07-29 14:29 | PDOC PROGRESS REPORT ---
Subjective Progress Note for:: 07/29/18 Subjective:: The patient states that his right leg is better. Complaining about interruptions to his sleep. Reason For Visit: RLE CELLULITIS,IVDA Physical Exam Vital Signs: Temp Pulse Resp BP Pulse Ox 97.8 F 71 18 112/98 H 100 07/29/18 08:07 07/29/18 08:07 07/29/18 08:07 07/29/18 08:07 07/29/18 08:07 Intake & Output 07/28/18 07/29/18 07/30/18 06:59 06:59 06:59 Intake Total 1800 Balance 1800 Weight 89.2 kg General appearance: PRESENT: no acute distress, cooperative Respiratory exam: PRESENT: other - No increased work of breathing.. ABSENT: crackles, rales, wheezes Cardiovascular exam: PRESENT: RRR, other - No lateral PMI. No thrills.. ABSENT : diastolic murmur, gallop, rubs, systolic murmur Pulses: PRESENT: normal carotid pulses, normal dorsalis pedis pul GI/Abdominal exam: PRESENT: soft. ABSENT: firm, hernia, mass, organolmegaly Extremities exam: PRESENT: full ROM, tenderness - Right lower extremity, other - Right ankle is markedly less erythmetous and swollen today. No warmth.. ABSENT: clubbing, joint swelling, pedal edema Musculoskeletal exam: PRESENT: tenderness - Right lower extremity. ABSENT: deformity, dislocation, normal inspection Neurological exam: PRESENT: alert, awake, oriented to person, oriented to place , oriented to time, oriented to situation, CN II-XII grossly intact. ABSENT: motor sensory deficit Psychiatric exam: PRESENT: appropriate affect, normal mood Skin exam: PRESENT: cyanosis, intact, warm Results Laboratory Results: 07/29/18 04:22 07/29/18 04:22 07/29/18 07/29/18 04:22 04:22 WBC 4.7 RBC 4.27 L Hgb 12.7 L Hct 38.1 MCV 89 MCH 29.8 MCHC 33.4 RDW 14.0 Plt Count 276 Seg Neutrophils % 59.0 Lymphocytes % 23.3 Monocytes % 11.6 Eosinophils % 4.0 Basophils % 2.1 H Absolute Neutrophils 2.8 Absolute Lymphocytes 1.1 Absolute Monocytes 0.6 Absolute Eosinophils 0.2 Absolute Basophils 0.1 Sodium 141.5 Potassium 4.3 Chloride 103 Carbon Dioxide 30 Anion Gap 9 BUN 10 Creatinine 0.62 Est GFR ( Amer) > 60 Est GFR (Non-Af Amer) > 60 Glucose 93 Calcium 9.3 Total Bilirubin 0.3 AST 70 H ALT 65 Alkaline Phosphatase 102 Total Protein 7.1 Albumin 3.5 07/29/18 07/29/18 04:22 04:22 WBC 4.7 RBC 4.27 L Hgb 12.7 L Hct 38.1 MCV 89 MCH 29.8 MCHC 33.4 RDW 14.0 Plt Count 276 Seg Neutrophils % 59.0 Lymphocytes % 23.3 Monocytes % 11.6 Eosinophils % 4.0 Basophils % 2.1 H Absolute Neutrophils 2.8 Absolute Lymphocytes 1.1 Absolute Monocytes 0.6 Absolute Eosinophils 0.2 Absolute Basophils 0.1 Sodium 141.5 Potassium 4.3 Chloride 103 Carbon Dioxide 30 Anion Gap 9 BUN 10 Creatinine 0.62 Est GFR ( Amer) > 60 Est GFR (Non-Af Amer) > 60 Glucose 93 Calcium 9.3 Total Bilirubin 0.3 Direct Bilirubin 0.3 AST 70 H ALT 65 Alkaline Phosphatase 102 Total Protein 7.1 Albumin 3.5 Impressions: Ankle X-Ray 07/26/18 15:59 IMPRESSION: Ankle joint effusion with diffuse soft tissue swelling. No fracture. Lower Extremity MRI 07/28/18 00:00 IMPRESSION: Right ankle superficial soft tissue edema and cellulitis without rim enhancing abscess identified. No abnormal marrow signal worrisome for osteomyelitis. No ankle joint effusion. Clavicle X-Ray 07/29/18 00:00 IMPRESSION: NEGATIVE STUDY OF THE RIGHT CLAVICLE. NO RADIOGRAPHIC EVIDENCE OF ACUTE INJURY. Assessment & Plan - Diagnosis (1) Cellulitis of right lower extremity Is this a current diagnosis for this admission?: Yes Plan: I have discussed the patient's MRI with Dr. Monsivais. There is no sign of a septic joint. It appears to be cellulitis. I will continue IV antibiotics and stop colchicine. Looks much better today. (2) IV drug abuse Is this a current diagnosis for this admission?: Yes Plan: Blood cultures remain negative. Consider echocardiogram if they grow anything. (3) Tobacco dependence Is this a current diagnosis for this admission?: Yes - Time Time Spent with patient: 25-34 minutes Medications reviewed and adjusted accordingly: Yes
[2018-07-30] MEDS: ZOLPIDEM TARTRATE 5 MG TABLET PO PRN (00:08)
[2018-07-30] MEDS: HEPARIN SOD (PORCINE) 5,000 UNIT/ML 1 ML SYRINGE SUBCUT SCH ×3 (10:12→21:23)
[2018-07-30] MEDS: DOCUSATE SODIUM 100 MG CAPSULE PO SCH ×2 (10:12→17:16)
[2018-07-30] MEDS: CEFTRIAXONE SODIUM 2,000 MG in NORMAL SALINE 100 ML IV SCH (10:19)
--- NOTE | 2018-07-30 13:38 | PDOC PROGRESS REPORT ---
Subjective Progress Note for:: 07/30/18 Subjective:: The patient states that his right leg is better. Complaining about interruptions to his sleep. Reason For Visit: RLE CELLULITIS,IVDA Physical Exam Vital Signs: Temp Pulse Resp BP Pulse Ox 97.4 F 77 16 116/70 100 07/30/18 11:47 07/30/18 11:47 07/30/18 11:47 07/30/18 11:47 07/30/18 11:47 Intake & Output 07/29/18 07/30/18 07/31/18 06:59 06:59 06:59 Intake Total 1800 3284 100 Balance 1800 3284 100 Weight 89.2 kg 87.8 kg General appearance: PRESENT: no acute distress, cooperative, well-developed, well-nourished Respiratory exam: PRESENT: other - No increased work of breathing.. ABSENT: rales, rhonchi, wheezes Cardiovascular exam: PRESENT: RRR. ABSENT: diastolic murmur, gallop, systolic murmur Pulses: PRESENT: normal carotid pulses, normal dorsalis pedis pul GI/Abdominal exam: PRESENT: normal bowel sounds, soft. ABSENT: hernia, mass, organolmegaly, tenderness Extremities exam: PRESENT: other - Right lower extremity ankle has greatly reduced erythema and warmth. The patient states that it is looking better.. ABSENT: clubbing, pedal edema, tenderness Musculoskeletal exam: ABSENT: deformity, dislocation, tenderness Neurological exam: PRESENT: alert, awake, oriented to person, oriented to place , oriented to time, oriented to situation, CN II-XII grossly intact. ABSENT: motor sensory deficit Psychiatric exam: PRESENT: appropriate affect, normal mood Skin exam: PRESENT: dry, intact, warm Results Laboratory Results: 07/29/18 04:22 07/29/18 04:22 Impressions: Ankle X-Ray 07/26/18 15:59 IMPRESSION: Ankle joint effusion with diffuse soft tissue swelling. No fracture. Lower Extremity MRI 07/28/18 00:00 IMPRESSION: Right ankle superficial soft tissue edema and cellulitis without rim enhancing abscess identified. No abnormal marrow signal worrisome for osteomyelitis. No ankle joint effusion. Clavicle X-Ray 07/29/18 00:00 IMPRESSION: NEGATIVE STUDY OF THE RIGHT CLAVICLE. NO RADIOGRAPHIC EVIDENCE OF ACUTE INJURY. Assessment & Plan - Diagnosis (1) Cellulitis of right lower extremity Is this a current diagnosis for this admission?: Yes Plan: Much improved. I will change the patient's antibiotics to PO. (2) IV drug abuse Is this a current diagnosis for this admission?: Yes Plan: Blood cultures remain negative. Consider echocardiogram if they grow anything. (3) Tobacco dependence Is this a current diagnosis for this admission?: Yes Plan: Nicotine patch. - Time Time Spent with patient: 25-34 minutes Medications reviewed and adjusted accordingly: Yes Anticipated discharge: Home Within: within 24 hours
[2018-07-30] MEDS: CEPHALEXIN 500 MG CAPSULE PO SCH ×2 (15:41→21:19)
[2018-07-31] MEDS: ZOLPIDEM TARTRATE 5 MG TABLET PO PRN (00:07)
[2018-07-31] MEDS: ACETAMINOPHEN 325 MG TABLET PO PRN (03:44)
[2018-07-31] MEDS: HEPARIN SOD (PORCINE) 5,000 UNIT/ML 1 ML SYRINGE SUBCUT SCH ×2 (05:31→13:07)
[2018-07-31] MEDS: CEPHALEXIN 500 MG CAPSULE PO SCH ×2 (05:31→13:07)
[2018-07-31] MEDS: DOCUSATE SODIUM 100 MG CAPSULE PO SCH (09:55)
[2018-07-31 13:26] VITALS: BP 125/79
--- NOTE | 2018-07-31 15:00 | PDOC DISCHARGE SUMMARY ---
General - Admit/Disc Date/PCP Admission Date/Primary Care Provider: 07/28/18 08:53 Discharge Date: 07/31/18 - Discharge Diagnosis (1) Cellulitis of right lower extremity Is this a current diagnosis for this admission?: Yes (2) IV drug abuse Is this a current diagnosis for this admission?: Yes (3) Tobacco dependence Is this a current diagnosis for this admission?: Yes - Additional Information Resuscitation Status: Full Code Discharge Diet: Regular Discharge Activity: Activity As Tolerated, No Driving Prescriptions: Cephalexin Monohydrate [Keflex 500 mg Capsule] 500 mg PO Q8 #15 capsule Lactobacillus Acidophilus [Acidophilus Probiotic] 0.5 mg PO BID #14 tablet Home Medications: Cephalexin Monohydrate [Keflex 500 mg Capsule] 500 mg PO Q8 #15 capsule Lactobacillus Acidophilus [Acidophilus Probiotic] 0.5 mg PO BID #14 tablet 07/31 History of Present Illness History of Present Illness: ADRYL ESTEVEZ is a 27 year old male with a past medical history of IV drug abuse with methamphetamine abuse and tobacco dependence. Presents with right ankle pain and swelling which began 2 weeks ago but significantly worsened over the last 48 hours. Patient admits IV drug use at this site but claims abstaining from IV drug abuse for 2 months. In the emergency room he is seen by orthopedic surgery receives arthrocentesis and empiric antibiotics then referred to the hospitalist for admission. Hospital Course Hospital Course: The patient was admitted to a medical bed. Orthopedic surgery was consulted to assist with ruling out septic joint or osteomyelitis in the right lower extremity of this IVDA patient. They also attempted to aspirate the joint in the ED. The tap was dry. Blood cultures x 2 were taken. They have remained negative. He was started on IV antibiotics. Orthopedic surgery put the patient on colchicine in case the patient had gout. They performed an arthrocentesis which was negative for MRI of the lower extremity and ankle were obtained. They were negative for signs of septic arthritis or osteomyelitis. Colchicine was stopped and the patient was continued on IV antibiotics. The swelling, erythema, and pain of the ankle continued to resolve. Today the ankle is not erythematous, swollen, or warm to touch. He was converted to PO antibiotics yesterday. He will be discharged to home today in good condition on PO antibiotics. Physical Exam Vital Signs: Temp Pulse Resp BP Pulse Ox 97.7 F 90 18 125/79 99 07/31/18 13:25 07/31/18 13:25 07/31/18 13:25 07/31/18 13:25 07/31/18 13:25 Intake & Output 07/30/18 07/31/18 08/01/18 06:59 06:59 06:59 Intake Total 3284 1428 Balance 3284 1428 Weight 87.8 kg 89 kg General appearance: PRESENT: no acute distress, cooperative Respiratory exam: PRESENT: other - No increased. ABSENT: rales, rhonchi, wheezes Cardiovascular exam: PRESENT: other - No lateral PMI. No thrills. Pulses: PRESENT: normal dorsalis pedis pul GI/Abdominal exam: PRESENT: normal bowel sounds, soft. ABSENT: distended, organolmegaly, tenderness Extremities exam: PRESENT: other - No erythema, swelling, or warmth to the right lower extremity. Musculoskeletal exam: PRESENT: normal inspection. ABSENT: deformity, dislocation, tenderness Neurological exam: PRESENT: alert, awake, oriented to person, oriented to place , oriented to time, oriented to situation, CN II-XII grossly intact. ABSENT: motor sensory deficit Psychiatric exam: PRESENT: appropriate affect, normal mood Skin exam: PRESENT: dry, intact, warm Results Laboratory Results: 07/29/18 04:22 07/29/18 04:22 Impressions: Ankle X-Ray 07/26/18 15:59 IMPRESSION: Ankle joint effusion with diffuse soft tissue swelling. No fracture. Lower Extremity MRI 07/28/18 00:00 IMPRESSION: Right ankle superficial soft tissue edema and cellulitis without rim enhancing abscess identified. No abnormal marrow signal worrisome for osteomyelitis. No ankle joint effusion. Clavicle X-Ray 07/29/18 00:00 IMPRESSION: NEGATIVE STUDY OF THE RIGHT CLAVICLE. NO RADIOGRAPHIC EVIDENCE OF ACUTE INJURY. Qualifiers - * PATIENT BEING DISCHARGED WITH ANY OF THE FOLLOWING DIAGNOSIS: No
[2018-08-03 14:08] LABS: PATH REVIEW PATHOLOGIST REVIEWED
== END 2018-07-31 14:00 | disposition home or self-care (01) | DRG 603 ==
LOC: ER 15:03 → EH 19:36 → 5 21:18 → OBSVTOIN 07-28 08:53
PROVIDERS: ADMIT Internal Medicine; ATTEND Internal Medicine
DX: L03.115 Cellulitis of right lower limb (principal); F41.1 Generalized anxiety disorder; F17.210 Nicotine dependence, cigarettes, uncomplicated
CPT/HCPCS: 36415; 80048; 80053; 80307; 81001; 83605; 84550; 85025; 85652; 86140; 87040; A9576; G0378; J0696; J1644; J1885; J3370; J7030